=== PATIENT | male | born 1925 | race Caucasian/White ===

== ENCOUNTER 2017-01-19 16:53 | Emergency (ER) | payer MEDICARE | END 2017-01-19 23:40 | disposition home or self-care (01) | LOC: ER 16:53 | DX: S61.412A Laceration without foreign body of left hand, initial encounter (principal); I10 Essential (primary) hypertension; J61 Pneumoconiosis due to asbestos and other mineral fibers; E07.9 Disorder of thyroid, unspecified; Z99.81 Dependence on supplemental oxygen; Z88.2 Allergy status to sulfonamides; Z23 Encounter for immunization; Z85.828 Personal history of other malignant neoplasm of skin; Z86.73 Personal history of transient ischemic attack (TIA), and cerebral infarction without residual deficits | CPT/HCPCS: 90471 ==